=== PATIENT | male | born 1955 | race Caucasian/White ===

== ENCOUNTER 2019-11-11 10:28 | Day surgery (SDC) | payer MEDICARE ==
[2019-11-09 14:01] LABS: BASOPHILS # (AUTO) 0.1 X10'3 (0-0.2); BASOPHILS % (AUTO) 1.3 % (0-1); EOSINOPHILS # (AUTO) 0.1 X10'3 (0-0.9); EOSINOPHILS % (AUTO) 1.5 % (0-6); HEMATOCRIT 46.2 % (42.0-52.0); HEMOGLOBIN 16.1 g/dl (14.0-17.9); LYMPHOCYTES # (AUTO) 0.7 X10'3 (1.1-4.8); LYMPHOCYTES % (AUTO) 16.5 % (21-51); MEAN CORPUSCULAR HEMOGLOBIN 33.5 PG (27.0-31.0); MEAN CORPUSCULAR HGB CONC 34.8 g/dL (33.0-36.5); MEAN CORPUSCULAR VOLUME 96.4 FL (78-98); MEAN PLATELET VOLUME 10.1 FL (7.4-10.4); MONOCYTES # (AUTO) 0.5 X10'3 (0-0.9); MONOCYTES % (AUTO) 10.8 % (2-12); NEUTROPHILS # (AUTO) 3.1 X10'3 (1.8-7.7); NEUTROPHILS % (AUTO) 69.9 % (42-75); PLATELET COUNT 180 X10'3 (140-440); RED BLOOD COUNT 4.79 X10'6 (4.70-6.10); RED CELL DISTRIBUTION WIDTH 13.8 % (11.5-14.5); WHITE BLOOD COUNT 4.5 X10'3 (4.5-11.0)
[2019-11-09 14:09] LABS: PARTIAL THROMBOPLASTIN TIME 27 SECONDS (22-32)
[2019-11-09 14:11] LABS: ALANINE AMINOTRANSFERASE 65 U/L (12-78); ALBUMIN 3.9 G/DL (3.4-5.0); ALKALINE PHOSPHATASE 76 IU/L (46-116); ANION GAP 5 (8-16); ASPARTATE AMINO TRANSFERASE 54 U/L (10-37); BILIRUBIN,TOTAL 0.7 MG/DL (0.1-1.0); BLOOD UREA NITROGEN 17 MG/DL (7-18); BUN/CREATININE RATIO 17.7 (5.4-32.0); CALCIUM 9.3 MG/DL (8.5-10.1); CHLORIDE 105 MMOL/L (99-107); CREATININE 0.96 MG/DL (0.60-1.10); GLUCOSE 144 MG/DL (70-104); POTASSIUM 3.9 MMOL/L (3.5-5.1); SODIUM 140 MMOL/L (135-145); TOTAL CARBON DIOXIDE 30.3 MMOL/L (24-32); eGFR 78 ML/MIN
[2019-11-11] VITALS (11 sets, daily range): BP systolic 133–155; BP diastolic 79–94
[2019-11-11] MEDS ORDERED: diphenhydrAMINE 25mg capsule PO PRN (10:50)
[2019-11-11] MEDS ORDERED: normal saline 1,000 ML IV SCH (10:50)
[2019-11-11] MEDS ORDERED: LORazepam 0.5 MG tablet PO PRN (10:50)
[2019-11-11] MEDS ORDERED: nitroGLYCERIN 0.4mg SUBLingual tab SL PRN (10:50)
[2019-11-11] MEDS ORDERED: BACL20TA PO (10:58)
[2019-11-11] MEDS ORDERED: ZOLP5TAB8 PO (10:58)
[2019-11-11] MEDS ORDERED: LABE100T5 PO (10:58)
[2019-11-11] MEDS ORDERED: HYDR-4383 PO (10:58)
[2019-11-11] MEDS ORDERED: NIFE90TA61 PO (10:58)
[2019-11-11] MEDS ORDERED: LORA-269 PO (10:58)
[2019-11-11] MEDS ORDERED: MELO-102 PO (10:58)
[2019-11-11] MEDS ORDERED: FURO-150 PO (10:58)
[2019-11-11] MEDS ORDERED: iohexol 350 MG/ML 50ML vial IV ONE (11:02)
[2019-11-11] MEDS ORDERED: midazolam 2 mg/2 ml injection ONE (11:02)
[2019-11-11] MEDS ORDERED: iohexol 350MG/ML 100ml bottle IV ONE (11:02)
[2019-11-11] MEDS ORDERED: fentaNYL/PF 50MCG/1 ML 2ML syringe ONE (11:02)
[2019-11-11] MEDS ORDERED: LIDOcaine 1% (10mg/ml)w/preservative injection 20ml MDV ONE (11:02)
[2019-11-11] MEDS ORDERED: HYDROmorphone 1 mg/ml syringe ONE ×2 (11:28→11:33)
[2019-11-11] MEDS ORDERED: OXAZEpam 15mg capsule PO PRN (12:20)
[2019-11-11] MEDS ORDERED: ondansetron/PF 4mg/2ml inj IV PRN (12:20)
[2019-11-11] MEDS ORDERED: proCHLORperazine 10 MG/2 ml inj IV PRN (12:20)
[2019-11-11] MEDS ORDERED: HYDROcodone/acetaminophen 10/325mg tab PO PRN (12:20)
[2019-11-11] MEDS ORDERED: HYDROcodone/acetaminophen 5mg/325mg tablet PO PRN (12:20)
== END 2019-11-11 18:00 | disposition home or self-care (01) ==
LOC: SSTAY O 10:28
PROVIDERS: ATTEND Internal Medicine Cardiovascular Disease
DX: R94.39 Abnormal result of other cardiovascular function study (principal); I25.10 Atherosclerotic heart disease of native coronary artery without angina pectoris; I10 Essential (primary) hypertension; E78.5 Hyperlipidemia, unspecified; Z72.89 Other problems related to lifestyle; Z88.8 Allergy status to other drugs, medicaments and biological substances
CPT/HCPCS: 36415; 71046; 80053; 85025; 85610; 85730; 93458; 99152; 99153; C1769; J1170; J1644; J2001; J2250; J3010; J7030; Q0163; Q9967; A4620; A6258; C1760